=== PATIENT | male | born 1965 | race Two or more races ===

== ENCOUNTER → 2023-11-11 | Outpatient (CLI) | payer BC ==
[2023-11-11 09:03] LABS: Folate (Folic Acid) 17.69 ng/mL (>5.38)
[2023-11-12 19:05] LABS: Hepatitis B Core Total Antibod Negative (Negative)
[2023-11-14 09:37] LABS: Hepatitis B Surface Antibody Negative (Negative)
[2023-11-14 09:51] LABS: Hepatitis B Surface Antigen Negative (Negative)
[2023-11-14 10:06] LABS: Albumin 3.3 g/dL (2.9-4.4); Alpha-1-Globulin 0.2 g/dL (0.0-0.4); Alpha-2-Globulin 0.7 g/dL (0.4-1.0); Gamma Globulin 1.1 g/dL (0.4-1.8); Protein Total Serum 6.3 g/dL (6.0-8.5)
[2023-11-14 10:12] LABS: Hepatitis B Core IgM Negative; Hepatitis C Antibody Negative (Negative)
== END | disposition home or self-care (01) ==
LOC: LAB 06:57
PROVIDERS: ATTEND Internal Medicine
DX: M54.12 Radiculopathy, cervical region (principal); R32 Unspecified urinary incontinence; R20.2 Paresthesia of skin
CPT/HCPCS: 36415; 82565; 82607; 82746; 83615; 84155; 84165; 84520; 86705; 86706; 86803; 87340

== ENCOUNTER → 2024-07-30 | Outpatient (CLI) | payer BC ==
[2024-07-30 12:42] LABS: Alanine Aminotransferase 21 U/L (7-40); Albumin 4.2 g/dL (3.2-4.8); Anion Gap 4 (5-15); Aspartate Aminotransferase 26 U/L (13-40); BUN/Creatinine Ratio 11.8 (10.0-20.0); Bilirubin, Total 0.8 mg/dL (0.2-1.0); Calcium 10.1 mg/dL (8.7-10.4); Carbon Dioxide 27 mmol/L (20-31); Glucose 82 mg/dL (74-106); Magnesium 1.9 mg/dL (1.6-2.6); Potassium 4.1 mmol/L (3.5-5.1); Sodium 141 mmol/L (136-145); Total Protein 6.7 g/dL (5.7-8.2)
[2024-07-30 12:53] LABS: Alkaline Phosphatase 117 U/L (46-116); Blood Urea Nitrogen 8 mg/dL (9-23); Chloride 110 mmol/L (98-107)
[2024-07-30 12:57] LABS: Erythrocyte Sedimentation Rate 7 mm/hr (0-20)
[2024-07-30 13:22] LABS: Uric Acid 4.2 mg/dL (3.7-9.2)
== END | disposition home or self-care (01) ==
LOC: LAB 11:15
PROVIDERS: ATTEND Internal Medicine
DX: I10 Essential (primary) hypertension (principal); M62.838 Other muscle spasm
CPT/HCPCS: 36415; 80053; 83735; 83880; 84550; 85379; 85652; 86431

== ENCOUNTER → 2024-11-06 | Outpatient (CLI) | payer BC ==
[2024-11-06 16:25] LABS: Alanine Aminotransferase 26 U/L (7-40); Albumin 4.6 g/dL (3.2-4.8); Anion Gap 7 (5-15); Aspartate Aminotransferase 30 U/L (13-40); BUN/Creatinine Ratio 19.5 (10.0-20.0); Bilirubin, Total 0.7 mg/dL (0.2-1.0); Blood Urea Nitrogen 16 mg/dL (9-23); Calcium 10.4 mg/dL (8.7-10.4); Carbon Dioxide 29 mmol/L (20-31); Chloride 105 mmol/L (98-107); Glucose 94 mg/dL (74-106); Potassium 3.7 mmol/L (3.5-5.1); Sodium 141 mmol/L (136-145); Total Protein 7.8 g/dL (5.7-8.2)
[2024-11-06 16:26] LABS: Alkaline Phosphatase 132 U/L (46-116)
== END | disposition home or self-care (01) ==
LOC: LAB 15:22
PROVIDERS: ATTEND Student in an Organized Health Care Education/Training Program
DX: I10 Essential (primary) hypertension (principal)
CPT/HCPCS: 36415; 80053